=== PATIENT | female | born 1980 | race Hispanic/Latino ===

== ENCOUNTER → 2018-06-09 10:10 | Outpatient (CLI) | payer OTHER, MEDICAID, SELFPAY ==
--- NOTE | 2018-06-09 10:14 | DI.US.S_ITS ---
PROCEDURE: US OB >= 14 WEEKS FETUS INDICATIONS: First US : Anatomy US with First OB visit for 06/09/18 OUTSIDE/PRIOR DATING DATA: Last menstrual period (LMP): Unknown. LMP-based estimated date of delivery (EUSEBIO): Not applicable. First dating scan (date and location): 06/09/2018. Estimated date of delivery (EUSEBIO) from first dating scan: 10/14/18. TECHNIQUE: Real-time scanning was performed of the fetus, with image documentation and biometric measurements. Endovaginal scanning: Not performed COMPARISON: None. FINDINGS: General: A single living intrauterine gestation is present. Presentation: Transverse with head at the maternal left. Placenta: Placental position is anterior, without previa. Amniotic fluid index: 14.5 cm, normal range is 5-24 cm. heart rate: 144 beats per minute. Maternal cervical canal: 4 cm long. Normal lower limit is 2.5 cm. biometrics: Biparietal diameter: 5.1 cm correlating with 21 weeks and 2 days Head circumference: 19.5 cm correlating with 21 weeks and 5 days Abdominal circumference: 17.7 cm correlating with 22 weeks and 4 days Femur length: 3.7 cm correlating with 21 weeks and 4 days Estimated gestational age from initial scan: not applicable. Composite gestational age from present scan: 21 weeks and 6 days Estimated weight and percentile: 472 g Measurement variability for biometric dating: +/- 7 days from 14 weeks to 15 weeks 6 days gestation, +/- 10 days from 16 weeks to 21 weeks 6 days gestation, +/- 2 weeks from 22 weeks to 27 weeks 6 days gestation, +/- 3 weeks for 28 weeks gestation or later. weight reference: 4500 g or EFW >90/95% is considered macrosomia or large for gestational age. EFW <10% is small for gestational age. EFW 5% or less is considered intra-uterine growth restriction. Anatomic survey: Neuro: Ventricles are non-dilated at less than 10 mm. Cisterna magna is normal at 3-11 mm. Cerebellum is normal in size and morphology. Nuchal skin fold: Normal at less than 6 mm between 14-21 weeks gestational age. Face: Nose and lips, facial profile are normal. Spine: No evidence for spina bifida. Heart: 4-chambered heart is present, with normal ventricular outflow tracts. Diaphragm: Diaphragm is intact. Stomach: Left-sided stomach is present. Kidneys: No hydronephrosis. Normal is less than 5 mm in 2nd trimester, less than 7 mm in 3rd trimester. Cord: 3-vessel cord has orthotopic insertion. Bladder: Normal in size. Extremities: All 4 extremities identified. IMPRESSION: Single living intrauterine gestation with an estimated sonographic gestational age of approximately 21 weeks and 6 days. Within the degree visualized, normal anatomic screening survey. Dictated by: Anthony Maier M.D. on 06/09/2018 at 15:54 Approved by: Anthony Maier M.D. on 06/09/2018 at 16:01
[2018-06-09 11:03] LABS: Add Manual Diff / Slide Review NO; Basophils Absolute Auto 0 /uL (0-100); Basophils Percent Auto 0.3 % (0-2); Eosinophils Absolute Auto 200 /uL (0-450); Eosinophils Percent Auto 2.5 % (2-4); Hematocrit 33.6 % (36-46); Hemoglobin 11.1 g/dL (12.0-16.0); Lymphocytes Absolute Auto 2000 /uL (1100-4500); Lymphocytes Percent Auto 19.9 % (25-40); Mean Corpuscular Hemoglobin 30.5 PG (26-34); Mean Corpuscular Volume 92.5 fL (80-100); Monocytes Absolute Auto 500 /uL (0-900); Monocytes Percent Auto 4.9 % (3-14); Neutrophils Absolute Auto 7100 /uL (1500-7000); Neutrophils Percent Auto 72.4 % (50-75); Platelet Count 238 X10^3/uL (150-400); Red Blood Cell Count 3.64 X10^6/uL (4.0-5.2); Red Cell Distribution Width 13.5 % (11.6-14.8); White Blood Cell Count 9.9 X10^3/uL (4.5-11.0)
[2018-06-09 11:20] LABS: Appearance Urine UA CLEAR; Bilirubin Urine UA NEGATIVE (NEGATIVE); Color Urine UA YELLOW; Glucose Urine UA NEGATIVE (Negative); Ketones Urine UA NEGATIVE (NEGATIVE); Leukocyte Esterase Urine UA NEGATIVE (NEGATIVE); Nitrite Urine UA NEGATIVE (Negative); Occult Blood Urine UA NEGATIVE (Negative); Protein Urine UA NEGATIVE (Negative); Urobilinogen Urine UA 0.2 E.U./dL (0.2); pH Urine UA 6.5 (4.5-8.0)
[2018-06-09 11:59] LABS: Hepatitis B Surface Antigen NEGATIVE s/c (NEGATIVE)
[2018-06-09 12:20] LABS: HIV 1 and 2 Antibody NEGATIVE (NEGATIVE)
[2018-06-09 13:02] LABS: Hep C Virus Ab w/Reflex Quant NEGATIVE s/c (NEGATIVE)
[2018-06-10 15:43] LABS: Varicella IgG Antibody < 135.00 Index (< 135.00)
[2018-06-11 19:14] LABS: RPR Screen Nonreactive (Nonreactive)
== END ==
PROVIDERS: Visit Provider Family Medicine
DX: O09.522 Supervision of elderly multigravida, second trimester (principal); Z3A.21 21 weeks gestation of pregnancy
CPT/HCPCS: 36415; 76811; 80055; 81003; 86703; 86787; 86803; 86850; 86900; 86901; 87086

== ENCOUNTER 2022-06-30 08:53 | Emergency (ER) | payer SELFPAY ==
[2022-06-30 09:14] VITALS: BP 134/80; PULSE 72; RESP 17; TEMP 36.2; O2SAT 96
--- NOTE | 2022-06-30 11:03 | DI.RAD.S_ITS ---
PROCEDURE: XR SHOULDER LT MIN 2V INDICATIONS: Pain TECHNIQUE: 3 views of the shoulder were acquired. COMPARISON: None. FINDINGS: Bones: No fractures or dislocations. No suspicious bony lesions. Visualized ribs appear intact. Soft tissues: No suspicious soft tissue calcifications. IMPRESSION: Unremarkable left shoulder radiographs Approved by: Adrian Rivas M.D. on 06/30/2022 at 11:12
--- NOTE | 2022-06-30 11:03 | DI.RAD.S_ITS ---
PROCEDURE: XR CERVICAL SPINE 2V OR 3V INDICATIONS: Left side pain TECHNIQUE: 3 view(s) of the cervical spine were acquired. COMPARISON: None. FINDINGS: Bones: There is straightening the normal cervical lordosis. Degenerative changes results in grade 1 anterior spondylolisthesis at C4-5. Normal bone mineralization present. Normal craniovertebral relationships. Soft tissues: No prevertebral soft tissue swelling. IMPRESSION: Degenerative changes without fracture or traumatic malalignment Approved by: Adrian Rivas M.D. on 06/30/2022 at 11:11
--- NOTE | 2022-06-30 11:04 | ED_ITS ---
HPI - Extremity Problem General Chief complaint: Extremity Problem,Nontraumatic Stated complaint: lf shoulder pain, disc problem history Time Seen by Provider: 06/30/22 10:32 Source: patient Mode of arrival: Ambulatory History of Present Illness HPI Narrative: Patient here for left neck left trapezius left shoulder pain for the past 2 months. This actually started back in December 2021. She was living in [place], she moved here 2 months ago. In [place] she was getting injections to the trapezius, getting chiropractic services as well as massages that helped her pain. She states she is right-handed. 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 She uses her left shoulder a lot with cleaning. As well as cooking. She also holds her child in her left arm. She is not had any treatments in the past 2 months. Pain has worsened. Denies . History of tubal ligation. Does not want test. She is not . No numbness or tingling to the hands or arms. Related Data Home Medications Medication Instructions Recorded Confirmed prenat.vits,florencio,ekm-[id number] 1 tab PO DAILY 06/09/18 06/09/18 Previous Rx's Medication Instructions Recorded baclofen 20 mg tablet 20 mg PO TID PRN pain (scale score 06/30/22 4-6) #20 tabs ibuprofen 800 mg tablet 800 mg PO Q8H PRN pain #20 tabs 06/30/22 Allergies Allergy/AdvReac Type Severity Reaction Status Date / Time Penicillins Allergy Severe Tightness Verified 07/02/22 08:59 to throat and bad hives Review of Systems Review of Systems Narrative: GENERAL: negative chills, fatigue, malaise, fever, sweats. HEENT: negative sinus pain, ear pain, sore throat RESPIRATORY: negative dyspnea, cough CARDIOVASCULAR: negative chest pain, palpitations GASTROINTESTINAL: negative nausea, vomiting, abdominal pain : negative dysuria, frequency, hematuria MUSCULOSKELETAL: Positive muscle or bony pain SKIN: negative rash, skin lesions NEUROLOGIC: negative weakness, numbness ROS Unobtainable: All systems reviewed & are unremarkable except as noted in HPI and below Patient History Social History (System 07/02/22 @ 08:59 by Lady Tanisha Reyes) Smoking Status: Never smoker Smoking Status: Never smoker alcohol intake frequency: 0-2 drinks per day Substance Use Type: does not use Exam Narrative Exam Narrative: GENERAL: in no distress, not toxic not dyspneic HEAD: Normocephalic. EYES: Pupils equal round ENT: Mucous membranes moist. NECK: Trachea midline. CARDIOVASCULAR: Regular rate and rhythm without murmurs RESPIRATORY: Clear to auscultation. Breath sounds equal bilaterally. No wheezes, rales, or rhonchi. GASTROINTESTINAL: Abdomen soft, non-tender EXTREMITIES: No gross deformities. Examination left upper extremity. Nontender shoulder joint. No gross deformity. Able to bring hand above her head and behind her back and front but does have pain with this movement. There is tenderness to the left trapezius. Increased pain with rotating head to the left. No midline tenderness or step-off of the cervical spine. There is supraclavicular muscle tenderness as well. Left arm and hand warm soft and pink with strong radial pulse brisk cap refills and light touch intact to thumb and fingers. BACK: No flank tenderness. NEURO: AOx4. SKIN: Warm and dry PSYCH: Not anxious, is cooperative Initial Vital Signs Initial Vital Signs: Vital Signs Temperature 97.1 F L 06/30/22 09:14 Pulse Rate 72 06/30/22 09:14 Respiratory Rate 17 06/30/22 09:14 Blood Pressure 134/80 06/30/22 09:14 Pulse Oximetry 96 06/30/22 09:14 Oxygen Delivery Method Room Air 06/30/22 09:14 Course Orders Ordered: Discontinued Medications Ketorolac Tromethamine (Ketorolac 30 Mg/Ml Vial) 30 mg IM NOW ONE Stop: 06/30/22 11:04 Last Admin: 06/30/22 11:16 Dose: 30 mg Documented By: BS Prednisone (Prednisone 20 Mg Tablet) 40 mg PO NOW ONE Stop: 06/30/22 11:04 Last Admin: 06/30/22 11:16 Dose: 40 mg Documented By: BS Vital Signs Vital signs: Vital Signs - 8 hr 06/30/22 09:14 Temperature 97.1 F L Pulse Rate 72 Respiratory Rate 17 Blood Pressure 134/80 Pulse Oximetry 96 Oxygen Delivery Method Room Air MDM - Extremity (Nontraumatic) Imaging Data Extremity x-ray #1: Radiologist's Impression: PROCEDURE:? XR SHOULDER LT MIN 2V ? INDICATIONS:? Pain ? TECHNIQUE:? 3 views of the shoulder were acquired.? ? COMPARISON:? None. ? FINDINGS:? ? Bones:? No fractures or dislocations.? No suspicious bony lesions.? Visualized ribs appear intact.? ? Soft tissues:? No suspicious soft tissue calcifications.? ? IMPRESSION:? Unremarkable left shoulder radiographs ? ? ? Approved by: Adrian Rivas M.D. on 06/30/2022 at 11:12? Extremity x-ray #2: Radiologist's Impression: PROCEDURE:? XR CERVICAL SPINE 2V OR 3V ? INDICATIONS:? Left side pain ? TECHNIQUE:? 3 view(s) of the cervical spine were acquired.? ? COMPARISON:? None. ? FINDINGS:? ? Bones:? There is straightening the normal cervical lordosis.? Degenerative changes results in grade 1 anterior spondylolisthesis at C4-5.? Normal bone mineralization present.? Normal craniovertebral relationships. ? Soft tissues:? No prevertebral soft tissue swelling.? MDM Narrative Medical decision making narrative: After history and exam x-ray cervical spine x-ray left shoulder Toradol prednisone ordered [facility] CC: Left shoulder and neck pain Complicating co-morbidities: Repetitive arm movement Data collected from: Patient Medical records reviewed: No recent visits here for this complaint Differential considered: Includes but not limited to cervical radiculopathy trapezius spasm left shoulder strain Exam documented above, pertinent findings include: Tender left trapezius Imaging studies independently reviewed: X-ray cervical spine x-ray left shoulder no acute process Treatments: Toradol prednisone Re-evaluations: 12:45 p.m.. Patient feeling much better after Toradol. Reviewed results with her. She does speak good Romanian. I gave her primary care referral. She agrees with treatment plan. She knows not to drive with prescribed baclofen. For is driving. Not toxic at discharge. Return precautions reviewed with her. She desires discharge home. Discussion: Appropriate for discharge home. Not toxic at discharge. Patient neurologically intact. Feels much better after conservative treatment with Toradol. Prescriptions provided. Work note provided. Primary care referral provided as well. Diagnosis: Cervical radiculopathy Discharge Plan Departure Patient Disposition: Home Clinical Impression: Cervical radiculopathy Activity Restrictions/Additional Instructions: Please see family doctor next week for re-evaluation and to schedule for MRI of your neck. Call provided primary care referral phone number to establish family doctor. Call [phone]. Your pain is likely from a pinched nerve in your neck. Return if worse if any questions or concerns. Prescriptions have been sent to your [facility] pharmacy. No driving or operating machinery when taking prescribed muscle relaxing medication. Prescriptions: New ibuprofen 800 mg tablet 800 mg PO Q8H PRN (Reason: pain) Qty: 20 0RF baclofen 20 mg tablet 20 mg PO TID PRN (Reason: pain (scale score 4-6)) Qty: 20 0RF No Action prenat.vits,florencio,ahg-[id number]-pgypa tablet 1 tab PO DAILY Stand Alone Forms: Patient Portal/API, Work Release Note
[2022-06-30] MEDS: predniSONE 20 MG TABLET 40 MG PO (11:16)
[2022-06-30] MEDS: KETOROLAC 30 MG/ML VIAL IM (11:16)
[2022-06-30 13:00] VITALS: BP 132/80; PULSE 68; RESP 16; O2SAT 100
== END 2022-06-30 13:01 | disposition home or self-care (01) ==
PROVIDERS: Emergency Provider Emergency Medicine
DX: M54.12 Radiculopathy, cervical region (principal)
CPT/HCPCS: 72040; 73030; 96372; 99283; J1885